=== PATIENT | female | born 2000 | race African-American/Black ===

== ENCOUNTER 2019-04-26 02:47 | Emergency (ER) | payer OTHER ==
[~2019-04-26] VITALS: Ht 165.1 cm; Wt 53.6 kg
[2019-04-26 02:58] VITALS: Ht 165.1 cm; Wt 53.6 kg
[2019-04-26 03:21] VITALS: BP 104/66
== END 2019-04-26 03:21 | disposition home or self-care (01) ==
LOC: EDSEX 02:47 → ED 02:47
DX: S40.862A Insect bite (nonvenomous) of left upper arm, initial encounter (principal); S80.262A Insect bite (nonvenomous), left knee, initial encounter; S70.361A Insect bite (nonvenomous), right thigh, initial encounter; W57.XXXA Bitten or stung by nonvenomous insect and other nonvenomous arthropods, initial encounter; Y93.89 Activity, other specified; Y92.89 Other specified places as the place of occurrence of the external cause; Y99.8 Other external cause status